=== PATIENT | female | born 1995 | race Caucasian/White ===

== ENCOUNTER 2017-01-22 10:08 | Emergency (ER) | payer OTHER ==
[2017-01-22] MEDS ORDERED: ONDANSETRON ODT 4 MG TAB PO STA (11:03)
[2017-01-22] MEDS ORDERED: KETOROLAC 60 MG/2 ML VIAL IM STA (11:03)
[2017-01-22] MEDS ORDERED: ACETAMINOPHEN TAB 500 MG TAB PO STA (11:03)
--- NOTE | 2017-01-22 11:37 | ED ---
General Adult HPI - General Chief complaint: Nausea/Vomiting/Diarrhea Stated complaint: SORE THROAT, VOMITING, FEVER Time Seen by Provider: 01/22/17 10:35 Source: patient, RN notes reviewed, old records reviewed Mode of arrival: ambulatory Limitations: no limitations - History of Present Illness Initial comments: This is a 22-year-old female here for evaluation of body aches and fever. Patient's and his is up-to-date withsignificant medical history takes no medications. Patient coming in with fever and body aches, and positive exposure to flu. Patient denies any chest pain or shortness of breath, no nausea vomiting or diarrhea. Denies possibility of - Related Data Home Medications Medication Instructions Recorded Confirmed No Known Home Medications [No 01/22/17 01/22/17 Known Home Medications] Allergies Allergy/AdvReac Type Severity Reaction Status Date / Time No Known Allergies Allergy Verified 01/22/17 10:24 Review of Systems ROS Statement: Those systems with pertinent positive or pertinent negative responses have been documented in the HPI. ROS Other: All systems not noted in ROS Statement are negative. Past Medical History Past Medical History: No Reported History Additional Past Medical History / Comment(s): stomach ulcer History of Any Multi-Drug Resistant Organisms: None Reported Past Surgical History: No Surgical Hx Reported Past Anesthesia/Blood Transfusion Reactions: No Reported Reaction Past Psychological History: No Psychological Hx Reported Smoking Status: Current some day smoker Past Alcohol Use History: None Reported Past Drug Use History: None Reported - Past Family History Father Family Medical History: No Reported History Mother Family Medical History: Cancer Additional Family Medical History / Comment(s): cervical General Exam Limitations: no limitations General appearance: alert, in no apparent distress Head exam: Present: atraumatic, normocephalic, normal inspection Eye exam: Present: normal appearance, PERRL, EOMI. Absent: scleral icterus, conjunctival injection, periorbital swelling ENT exam: Present: normal exam, mucous membranes moist Neck exam: Present: normal inspection. Absent: tenderness, meningismus, lymphadenopathy Respiratory exam: Present: normal lung sounds bilaterally. Absent: respiratory distress, wheezes, rales, rhonchi, stridor Cardiovascular Exam: Present: regular rate, normal rhythm, normal heart sounds. Absent: systolic murmur, diastolic murmur, rubs, gallop, clicks GI/Abdominal exam: Present: soft, normal bowel sounds. Absent: distended, tenderness, guarding, rebound, rigid Extremities exam: Present: normal inspection, full ROM, normal capillary refill. Absent: tenderness, pedal edema, joint swelling, calf tenderness Back exam: Present: normal inspection Neurological exam: Present: alert, oriented X3, CN II-XII intact Psychiatric exam: Present: normal affect, normal mood Skin exam: Present: warm, dry, intact, normal color. Absent: rash Course Vital Signs 01/22/17 01/22/17 10:20 11:59 Temperature 97.8 F 98.2 F Pulse Rate 127 H 98 Respiratory 18 16 Rate Blood Pressure 127/89 118/80 O2 Sat by Pulse 96 97 Oximetry Medical Decision Making - Medical Decision Making 22 female the ER for evaluation of fever, and nausea, decreased appetite, patient has positive flu exposure, some signs and symptoms consistent with flu will be discharged home with appropriate sent back therapy Disposition Clinical Impression: Influenza, Fever Disposition: HOME SELF-CARE Condition: Good Instructions: Fever in Adults (ED), Influenza (ED) Referrals: None,Stated [Primary Care Provider] - 1-2 days
[2017-01-22 12:00] VITALS: BP 118/80; PULSE 98; RESP 16; TEMP 98.2
== END 2017-01-22 12:07 | disposition home or self-care (01) ==
LOC: EC 10:08
DX: J11.1 Influenza due to unidentified influenza virus with other respiratory manifestations (principal); R11.10 Vomiting, unspecified; F17.200 Nicotine dependence, unspecified, uncomplicated
CPT/HCPCS: 99283; 96372; J1885

== ENCOUNTER 2017-11-19 00:04 | Emergency (ER) | payer SELFPAY ==
[2017-11-19 00:13] VITALS: RESP 18; TEMP 99.3
--- NOTE | 2017-11-19 00:30 | ED ---
Female Urogenital HPI - General Chief complaint: Vaginal Bleeding Stated complaint: Abdominal Pain Time Seen by Provider: 11/19/17 00:12 Source: patient Mode of arrival: EMS Limitations: no limitations - History of Present Illness Initial comments: This patient is a 22-year-old woman who presents by ambulance is transferred from [facility]. She had gone there tonight to be evaluated for left lower quadrant pains. Patient states that her pains had started 2-3 days ago and been intermittent. She describes sharp pains, moderate intensity, that would come and go but were more consistent day. She thought they may be related to "period cramps." She did feel that it was abnormal low because she has had approximate 5 days of bleeding and her periods usually last for 3 days. She also has had about a week of nausea and vomiting. Until the bleeding started she had considered she may be . At the other hospital she did have a positive test, and she had ultrasound that was concerning for ectopic . Patient's previous history is notable for being Ab2. MD Complaint: vaginal bleeding, pelvic pain -: days(s) Location: LLQ Radiation: non-radiating Severity: moderate Quality: sharp Consistency: intermittent Improves with: none Worsens with: none Last Menstrual Period: 11/12/17 Patient : Yes Associated Symptoms: nausea/vomiting - Related Data Sexually active: Yes : 4 Para: 1 A: 2 Home Medications Medication Instructions Recorded Confirmed No Known Home Medications [No 01/22/17 01/22/17 Known Home Medications] Allergies Allergy/AdvReac Type Severity Reaction Status Date / Time No Known Allergies Allergy Verified 11/19/17 00:13 Review of Systems ROS Statement: Those systems with pertinent positive or pertinent negative responses have been documented in the HPI. ROS Other: All systems not noted in ROS Statement are negative. Constitutional: Denies: fever, chills, weakness Respiratory: Denies: cough, dyspnea Cardiovascular: Denies: chest pain, palpitations Gastrointestinal: Reports: as per HPI, abdominal pain, nausea, vomiting. Denies : diarrhea, constipation Genitourinary: Denies: dysuria, hematuria Musculoskeletal: Denies: back pain Skin: Denies: rash Neurological: Denies: headache, weakness, numbness Hematological/Lymphatic: Denies: easy bleeding Past Medical History Past Medical History: No Reported History Additional Past Medical History / Comment(s): stomach ulcer History of Any Multi-Drug Resistant Organisms: None Reported Past Surgical History: No Surgical Hx Reported Past Anesthesia/Blood Transfusion Reactions: No Reported Reaction Past Psychological History: No Psychological Hx Reported Smoking Status: Current every day smoker Past Alcohol Use History: None Reported Past Drug Use History: Marijuana - Past Family History Father Family Medical History: No Reported History Mother Family Medical History: Cancer Additional Family Medical History / Comment(s): cervical General Exam Limitations: no limitations General appearance: alert, in no apparent distress Head exam: Present: atraumatic, normocephalic Eye exam: Present: normal appearance. Absent: scleral icterus, conjunctival injection ENT exam: Present: normal oropharynx Neck exam: Present: normal inspection, full ROM Respiratory exam: Present: normal lung sounds bilaterally. Absent: respiratory distress, wheezes, rales, rhonchi, stridor Cardiovascular Exam: Present: regular rate, normal rhythm, normal heart sounds. Absent: systolic murmur, diastolic murmur, rubs, gallop GI/Abdominal exam: Present: soft, normal bowel sounds. Absent: distended, tenderness, guarding, rebound, rigid, mass, pulsatile mass, hernia Extremities exam: Present: normal inspection, normal capillary refill. Absent: pedal edema, calf tenderness Back exam: Present: normal inspection. Absent: CVA tenderness (R), CVA tenderness (L) Neurological exam: Present: alert Skin exam: Present: warm, dry, intact, normal color. Absent: rash Course Vital Signs 11/19/17 11/19/17 00:08 01:12 Temperature 99.3 F Pulse Rate 80 Pulse Rate [ 86 Sitting Inspector Plug Seam] Pulse Rate [ 110 H Standing Inspector Plug Seam ] Pulse Rate [ 86 Supine Inspector Plug Seam] Respiratory 18 Rate Blood Pressure 142/76 Blood Pressure 135/82 [Sitting] Blood Pressure 149/88 [Standing] Blood Pressure 143/78 [Supine] O2 Sat by Pulse 99 99 Oximetry Disposition Clinical Impression: Ectopic without intrauterine Disposition: HOME SELF-CARE Condition: Fair Instructions: Ectopic (ED) Referrals: None,Stated [Primary Care Provider] - 1-2 days Carmencita Fagan DO [Doctor of Osteopathic Medicine] - 1-2 days
[2017-11-19 01:04] LABS: C Reactive Protein 8.7 mg/L (<10.0)
[2017-11-19 01:13] VITALS: BP 143/78; PULSE 86
[2017-11-19 01:18] LABS: HCG,Quantitative Serum 794.4 mIU/mL
[2017-11-19] MEDS ORDERED: ACETAMINOPHEN TAB 325 MG TAB PO STA (01:28)
== END 2017-11-19 01:35 | disposition home or self-care (01) ==
LOC: EC 00:04
DX: O00.90 Unspecified ectopic pregnancy without intrauterine pregnancy (principal)
CPT/HCPCS: 36415; 84702; 86140; 86900; 86901; 99284

== ENCOUNTER → 2017-11-20 | Outpatient (CLI) | payer OTHER | END | disposition home or self-care (01) | LOC: LABMAIN 13:01 | PROVIDERS: ATTEND Obstetrics & Gynecology Obstetrics | DX: O00.90 Unspecified ectopic pregnancy without intrauterine pregnancy (principal); R10.32 Left lower quadrant pain | CPT/HCPCS: 36415; 84144; 84702 ==

== ENCOUNTER → 2017-11-22 | Outpatient (CLI) | payer SELFPAY ==
[~2017-11-22] MED LIST: METHOTREXATE SODIUM (PF) 25 MG/ML 2 ML VIAL IM NR
[2017-11-22 15:34] VITALS: BP 146/68; PULSE 67; RESP 18; TEMP 98.3
[2017-11-22 15:56] LABS: Basophils # (A) 0.1 k/uL (0-0.2); Basophils % (A) 1 %; Eosinophils # (A) 0.1 k/uL (0-0.7); Eosinophils % (A) 2 %; HCT 39.6 % (34.0-46.0); HGB 13.3 gm/dL (11.4-16.0); Lymphocytes # (A) 1.4 k/uL (1.0-4.8); Lymphocytes % (A) 23 %; MCH 30.2 pg (25.0-35.0); MCHC 33.5 g/dL (31.0-37.0); MCV 90.1 fL (80.0-100.0); Mean Platelet Volume 8.2; Monocytes # (A) 0.3 k/uL (0-1.0); Monocytes % (A) 5 %; Neutrophils # (A) 4.2 k/uL (1.3-7.7); Neutrophils % (A) 67 %; Platelet Count 265 k/uL (150-450); RDW 13.4 % (11.5-15.5); WBC 6.3 k/uL (4.0-11.0)
[2017-11-22 16:05] LABS: ALT 28 U/L (9-52); AST 15 U/L (14-36); Blood Urea Nitrogen 7 mg/dL (7-17)
[2017-11-22 16:21] LABS: HCG,Quantitative Serum 719.7 mIU/mL
== END | disposition home or self-care (01) ==
LOC: PROCWHC3 15:17
PROVIDERS: ATTEND Obstetrics & Gynecology
DX: O00.90 Unspecified ectopic pregnancy without intrauterine pregnancy (principal); Z3A.00 Weeks of gestation of pregnancy not specified
CPT/HCPCS: 86900; 86901; 82565; 84450; 84460; 84520; 85025; 86850; 84702; 96372; J9260; 96402

== ENCOUNTER → 2017-11-29 | Outpatient (CLI) | payer SELFPAY ==
[2017-11-29 14:06] LABS: ALT 32 U/L (9-52); AST 15 U/L (14-36); Blood Urea Nitrogen 6 mg/dL (7-17)
[2017-11-29 14:22] LABS: HCG,Quantitative Serum 304.7 mIU/mL
[2017-11-29 14:39] LABS: HCT 36.6 % (34.0-46.0); HGB 12.1 gm/dL (11.4-16.0); MCH 30.4 pg (25.0-35.0); MCHC 33.1 g/dL (31.0-37.0); MCV 91.7 fL (80.0-100.0); Mean Platelet Volume 8.1; Platelet Count 228 k/uL (150-450); RDW 12.7 % (11.5-15.5)
== END | disposition home or self-care (01) ==
LOC: LABWHC1 13:10
PROVIDERS: ATTEND Obstetrics & Gynecology
DX: O00.90 Unspecified ectopic pregnancy without intrauterine pregnancy (principal); Z3A.00 Weeks of gestation of pregnancy not specified
CPT/HCPCS: 36415; 82565; 84450; 84460; 84520; 84702; 85027

== ENCOUNTER 2018-03-07 15:47 | Emergency (ER) | payer OTHER ==
[2018-03-07] MEDS ORDERED: MAG HYDROX/AL HYDROX/SIMETH 30 ML CUP PO PRN (17:23)
[2018-03-07] MEDS ORDERED: SUCRALFATE 1 GM TAB PO STA (17:23)
[2018-03-07] MEDS ORDERED: LIDOCAINE VISCOUS 2% 15 ML CUP MUCOUS MEM ONE (17:23)
[2018-03-07] MEDS ORDERED: ONDANSETRON 4 MG/2 ML VIAL IVP STA (17:23)
[2018-03-07 17:37] LABS: Appearance,Urine Cloudy (Clear); Bilirubin,Urine Negative (Negative); Blood,Urine Negative (Negative); Color,Urine Yellow; Glucose,Urine (UA) Negative (Negative); Ketones,Urine 4+ (Negative); Leukocyte Esterase,Urine Moderate (Negative); Mucus,Urine Many /hpf; Nitrite,Urine Negative (Negative); PH, Urine 8.5 (5.0-8.0); Protein,Urine 4+ (Negative); Specific Gravity,Urine 1.026 (1.001-1.035); Squamous Epithelial Cell,Urine 10 /hpf (0-4); WBC,Urine 8 /hpf (0-5)
[2018-03-07 17:58] LABS: Basophils % (A) 0 %; Eosinophils # (A) 0.1 k/uL (0-0.7); Eosinophils % (A) 0 %; HCT 39.3 % (34.0-46.0); HGB 13.8 gm/dL (11.4-16.0); Lymphocytes # (A) 1.4 k/uL (1.0-4.8); Lymphocytes % (A) 12 %; MCH 30.2 pg (25.0-35.0); MCHC 35.2 g/dL (31.0-37.0); MCV 85.9 fL (80.0-100.0); Mean Platelet Volume 8.6; Monocytes # (A) 0.4 k/uL (0-1.0); Monocytes % (A) 3 %; Neutrophils # (A) 9.8 k/uL (1.3-7.7); Neutrophils % (A) 84 %; Platelet Count 280 k/uL (150-450); RBC 4.58 m/uL (3.80-5.40); WBC 11.7 k/uL (3.8-10.6)
[2018-03-07 18:08] LABS: Anion Gap 16 mmol/L; Blood Urea Nitrogen 9 mg/dL (7-17); Calcium 10.2 mg/dL (8.4-10.2); Carbon Dioxide 28 mmol/L (22-30); Chloride 100 mmol/L (98-107); Glucose 92 mg/dL (74-99); Potassium 3.3 mmol/L (3.5-5.1); Sodium 144 mmol/L (137-145)
[2018-03-07 18:49] LABS: HCG,Quantitative Serum 46870.7 mIU/mL
--- NOTE | 2018-03-07 20:20 | ED ---
General Adult HPI - General Chief complaint: Nausea/Vomiting/Diarrhea Stated complaint: Vomiting Time Seen by Provider: 03/07/18 17:01 Source: patient Mode of arrival: wheelchair Limitations: no limitations - History of Present Illness Initial comments: Patient is a 23-year-old female who presents with a chief complaint of nausea and vomiting. She states is been going on for 3 days. She cannot identify any inciting incident though she states that she only gets this nauseated when she' s . Patient cannot identify any aggravating or alleviating factors. Timing is been intermittent. Patient states that she has been throwing up a lot of acid in her throat hurts. Last menstrual period was one month and 17 days ago. Patient has a significant medical history of a previous ectopic , she is a - Related Data Home Medications Medication Instructions Recorded Confirmed Ranitidine HCl [Zantac] 150 mg PO DAILY 03/07/18 03/07/18 Previous Rx's Medication Instructions Recorded Metoclopramide HCl [Reglan] 10 mg PO TID PRN #20 tablet 03/07/18 Pnv No.95/Ferrous Fum/Folic AC 1 each PO DAILY #30 tablet 03/07/18 [ Multivitamin Tablet] Sucralfate [Carafate] 1 gm PO ACHS #20 tablet 03/07/18 Allergies Allergy/AdvReac Type Severity Reaction Status Date / Time No Known Allergies Allergy Verified 03/07/18 17:51 Review of Systems ROS Statement: Those systems with pertinent positive or pertinent negative responses have been documented in the HPI. ROS Other: All systems not noted in ROS Statement are negative. ENT: Reports: throat pain Gastrointestinal: Reports: nausea, vomiting Past Medical History Past Medical History: No Reported History Additional Past Medical History / Comment(s): stomach ulcer 2016 full term 2018 ectopic - pt states this is 3rd . 2015 "" per pt History of Any Multi-Drug Resistant Organisms: None Reported Past Surgical History: No Surgical Hx Reported Past Anesthesia/Blood Transfusion Reactions: No Reported Reaction Past Psychological History: No Psychological Hx Reported Smoking Status: Current every day smoker Past Alcohol Use History: None Reported Past Drug Use History: Marijuana - Past Family History Father Family Medical History: No Reported History Mother Family Medical History: No Reported History Additional Family Medical History / Comment(s): pt states mom has not had any cancer General Exam Limitations: no limitations General appearance: alert, in no apparent distress Head exam: Present: atraumatic, normocephalic Eye exam: Present: normal appearance ENT exam: Present: normal exam Neck exam: Present: normal inspection Respiratory exam: Present: normal lung sounds bilaterally. Absent: respiratory distress, wheezes Cardiovascular Exam: Present: regular rate, normal rhythm GI/Abdominal exam: Present: soft. Absent: distended, tenderness Rectal exam: Present: deferred Extremities exam: Present: normal inspection Back exam: Present: normal inspection Neurological exam: Present: alert, oriented X3 Psychiatric exam: Present: normal affect, normal mood Course Vital Signs 03/07/18 16:08 Temperature 98.5 F Pulse Rate 77 Respiratory 16 Rate Blood Pressure 132/80 O2 Sat by Pulse 99 Oximetry Medical Decision Making - Medical Decision Making The presents with the chief complaint of nausea and vomiting. On initial evaluation, vital signs are stable, patient is in no acute distress. Patient was given Zofran, and IV fluids. Patient to be evaluated basic labs and test. 8:20 PM Lab evaluation is unremarkable, patient has a beta hCG of 43,000. Bedside ultrasound does not identify any intrauterine or ovarian masses however this point patient will be sent for a formal transvaginal ultrasound for further evaluation given her history of an ectopic . 9:01 PM EVALUATION SHOWS A VIABLE IUP AT 6 WEEKS. HE IS OTHERWISE UNREMARKABLE. AT THIS TIME, PATIENT IS TOLERATED BY MOUTH INTAKE, SHE WAS INSTRUCTED TO FOLLOW- UP WITH PRIMARY CARE AND [facility] [employer] SURVEY WORKER IN 1-2 DAYS. SHE WAS PRESCRIBED REGLAN, CARAFATE, VITAMINS. SHE IS INSTRUCTED FURTHER TO RETURN TO THE EMERGENCY DEPARTMENT IF HER SYMPTOMS WORSEN OR CHANGE. - Lab Data Result diagrams: 03/07/18 17:37 03/07/18 17:37 Lab Results 03/07/18 03/07/18 03/07/18 Range/Units 17:22 17:37 17:37 WBC 11.7 H (3.8-10.6) k/uL RBC 4.58 (3.80-5.40) m/uL Hgb 13.8 (11.4-16.0) gm/dL Hct 39.3 (34.0-46.0) % MCV 85.9 (80.0-100.0) fL MCH 30.2 (25.0-35.0) pg MCHC 35.2 (31.0-37.0) g/dL RDW 13.0 (11.5-15.5) % Plt Count 280 (150-450) k/uL Neutrophils % 84 % Lymphocytes % 12 % Monocytes % 3 % Eosinophils % 0 % Basophils % 0 % Neutrophils # 9.8 H (1.3-7.7) k/uL Lymphocytes # 1.4 (1.0-4.8) k/uL Monocytes # 0.4 (0-1.0) k/uL Eosinophils # 0.1 (0-0.7) k/uL Basophils # 0.0 (0-0.2) k/uL Sodium 144 (137-145) mmol/L Potassium 3.3 L (3.5-5.1) mmol/L Chloride 100 (98-107) mmol/L Carbon Dioxide 28 (22-30) mmol/L Anion Gap 16 mmol/L BUN 9 (7-17) mg/dL Creatinine 0.70 (0.52-1.04) mg/dL Est GFR (CKD-EPI)AfAm >90 (>60 ml/min/1.73 sqM) Est GFR (CKD-EPI)NonAf >90 (>60 ml/min/1.73 sqM) Glucose 92 (74-99) mg/dL Calcium 10.2 (8.4-10.2) mg/dL HCG, Quant 92709.7 mIU/mL Urine Color Yellow Urine Appearance Cloudy H (Clear) Urine pH 8.5 H (5.0-8.0) Ur Specific [place] 1.026 (1.001-1.035) Urine Protein 4+ H (Negative) Urine Glucose (UA) Negative (Negative) Urine Ketones 4+ H (Negative) Urine Blood Negative (Negative) Urine Nitrite Negative (Negative) Urine Bilirubin Negative (Negative) Urine Urobilinogen 2.0 (<2.0) mg/dL Ur Leukocyte Esterase Moderate H (Negative) Urine WBC 8 H (0-5) /hpf Ur Squamous Epith Cells 10 H (0-4) /hpf Urine Mucus Many H (None) /hpf Disposition Clinical Impression: Nausea and vomiting during Disposition: HOME SELF-CARE Condition: Good Instructions: Acute Nausea and Vomiting (ED) Prescriptions: Metoclopramide HCl [Reglan] 10 mg PO TID PRN #20 tablet PRN Reason: Nausea Pnv No.95/Ferrous Fum/Folic AC [ Multivitamin Tablet] 1 each PO DAILY # 30 tablet Sucralfate [Carafate] 1 gm PO ACHS #20 tablet Is patient prescribed a controlled substance at d/c from ED?: No Referrals: None,Stated [Primary Care Provider] - 1-2 days
--- NOTE | 2018-03-07 20:38 | US ---
EXAMINATION TYPE: Transabdominal DATE OF EXAM: 02/07/18 COMPARISON: NONE CLINICAL HISTORY: Pain. Vomiting EXAM PERFORMED: Transvaginal (TV) and Transabdominal (TA) EXAM MEASUREMENTS: GESTATIONAL AGE / DATING Physician Established: Not yet established Dates by LMP: (6 weeks/1 days) EDC: 10/30/2018 Dates by First Scan: No previous this is first scan Dates by Current Scan for: (6 weeks/0 days) EDC: 10/31/2018 MATERNAL ANATOMY Uterus: 7.7 x 5.1 x 5.5 cm Right Ovary: 3.5 x 3.0 x 2.2 cm Left Ovary: 2.2 x 1.2 x 1.1 cm Post CDS / Adnexa: wnl Presence of free fluid: no Presence of corpus luteal cyst: Yes Presence of subchorionic bleed: no GESTATION / SURVEY CRL: 0.49cm (6 weeks/1 days) MSD: 1.5cm (5 weeks/5 days) Yolk Sac (normal less than 6mm): 3mm 2nd faint yolk sac seen measuring 2mm Heart Rate: 158 bpm Rhythm: Normal IUP: Viable IUP Beta HcG (if available): Not available at this time IMPRESSION: Viable IUP 6wks 0 days STEFANIE 10/31/2018 HR 158 BPM.
[2018-03-07 21:13] VITALS: BP 114/65; PULSE 61; RESP 18; TEMP 99
== END 2018-03-07 21:12 | disposition home or self-care (01) ==
LOC: EC 15:47
DX: O21.9 Vomiting of pregnancy, unspecified (principal); O99.89 Other specified diseases and conditions complicating pregnancy, childbirth and the puerperium; R07.0 Pain in throat; Z32.01 Encounter for pregnancy test, result positive; O99.331 Smoking (tobacco) complicating pregnancy, first trimester; F17.200 Nicotine dependence, unspecified, uncomplicated; Z79.899 Other long term (current) drug therapy; Z87.19 Personal history of other diseases of the digestive system; Z3A.01 Less than 8 weeks gestation of pregnancy
CPT/HCPCS: 36415; 80048; 85025; 81001; 84702; 76801; 76817; 99284; 96374; J2405